=== PATIENT | female | born 1985 | race Caucasian/White ===

== ENCOUNTER 2022-03-16 12:37 | Emergency (ER) | payer OTHER, SELFPAY ==
[2022-03-16 13:06] VITALS: BP 114/69; PULSE 90; RESP 14; TEMP 36.4; O2SAT 100; BMI 21.4
[2022-03-16 15:42] VITALS: BP 113/72; PULSE 71; RESP 15; TEMP 36.9; O2SAT 100
[2022-03-16 16:58] LABS: MANUAL DIFF FLAG NO
[2022-03-16 17:09] LABS: Basophils Percent Auto 0.5 % (0-2); Eosinophils Absolute Auto 0.2 X10*3/uL (0.0-0.4); Eosinophils Percent Auto 3.2 % (0-4); Hematocrit 40.7 % (37.0-47.0); Hemoglobin 13.6 g/dl (12.0-16.0); Imm Gran Abs Auto 0.02 X10*3/uL (0.00-0.03); Imm Gran Pct Auto 0.3 % (0.0-0.4); Lymphocytes Absolute Auto 2.2 X10*3/uL (1.2-4.9); Mean Corpuscular HGB Conc 33.4 g/dl (31.0-35.0); Mean Corpuscular Hemoglobin 28.7 pg (27.0-33.0); Mean Corpuscular Volume 85.9 fL (80.0-98.0); Mean Platelet Volume 9.7 fL (9.4-12.3); Monocytes Absolute Auto 0.4 X10*3/uL (0.1-1.2); Monocytes Percent Auto 5.7 % (2-11); Neutrophils Absolute Auto 4.6 x10*3/uL (2.0-8.3); Neutrophils Percent Auto 61.3 % (45-73); Platelet Count 333 X10*3/uL (160-400); Red Blood Count 4.74 X10*6/uL (4.20-5.50); White Blood Count 7.5 X10*3/uL (4.8-10.8)
[2022-03-16 17:11] LABS: Lactic Acid 0.8 mmol/L (0.5-2.0)
[2022-03-16 17:25] LABS: Alanine Aminotransferase 7 U/L (0-31); Alkaline Phosphatase 54 U/L (39-117); Anion Gap 14 (12-20); Aspartate Amino Transferase 18 U/L (5-31); Bilirubin Direct 0.3 mg/dL (0.0-0.5); Bilirubin Total 0.7 mg/dL (0.0-1.0); Blood Urea Nitrogen 7 mg/dL (9-16); Calcium 10.1 mg/dL (8.4-10.2); Carbon Dioxide 24 mmol/L (22-29); Chloride 104 mmol/L (96-108); Creatinine Clr Calc Pharmacy 73.9; Estimated Glomerular Filt Rate > 60; Glucose Random 80 mg/dL (60-115); Potassium 4.4 mmol/L (3.3-5.1); Sodium 138 mmol/L (135-145); Total Protein 7.9 g/dL (6.5-8.0)
--- NOTE | 2022-03-16 17:44 | PC.NURSE ---
IV access infiltrated. Juliana ANDERSON attempting to obtain new patent IV access at this time. Medications to be administered once new IV is established. Provider (Salima Claudio) aware.
--- NOTE | 2022-03-16 18:02 | ED.GENADULT ---
HPI - General Adult General Chief complaint: Skin/Abscess/Foreign Body Stated complaint: acute lymphangitis Time Seen by Provider: 03/16/22 15:46 Source: patient Mode of arrival: ambulatory History of Present Illness HPI narrative: 36-year-old female with no significant past medical history presenting to the ED complaining of poison gely noted to left forearm after gardening 4 days ago, with mild swelling and erythema around area 2 days ago, and progression to red streaking up the arm since last night. Denies trauma, fever, chills, decreased ROM, numbness/tingling Onset (ago): day(s) Location: upper extremity Related Data Previous Rx's Medication Instructions Recorded cephalexin 500 mg capsule 500 mg PO QID 7 days #28 caps 03/16/22 doxycycline hyclate 100 mg tablet 100 mg PO BID 7 days #14 tabs 03/16/22 prednisone 10 mg tablet 10 mg PO DAILY #20 tabs 03/16/22 Allergies Allergy/AdvReac Type Severity Reaction Status Date / Time No Known Allergies Allergy Verified 03/16/22 16:05 Review of Systems Review of Systems: Constitutional: No Fever, No Chills ENT/Mouth: No Ear Pain, No Nasal Congestion, No sore throat, No Rhinorrhea, No Swallowing Difficulty Cardiovascular: No Chest Pain, No SOB Respiratory: No Cough, No Sputum Gastrointestinal: No Nausea, No Vomiting, No Diarrhea, No Constipation, No Abdominal pain Genitourinary: No Dysuria, No Urgency, No Flank Pain Musculoskeletal: No joint pain, No Myalgias, No Joint Swelling Skin: + Skin Lesions, + rash Neuro: No Weakness, No Numbness, No Paresthesias Yes all other systems are reviewed and are negative [facility] Past Medical History Attestation statement: The following information was validated with the patient. Social History Social History Advance Directives: No Advance Directives Information Provided: No Physical Exam ED Vital Signs: Vital Signs - 24 hr 03/16/22 13:06 03/16/22 15:42 Temperature 97.6 F 98.4 F Pulse Rate 90 71 Respiratory Rate 14 15 Blood Pressure 114/69 113/72 Pulse Oximetry 100 100 Oxygen Delivery Method Room Air Room Air BMI result Body Mass Index 21.4 Const General: cooperative, healthy appearing and no acute distress Orientation/consciousness: patient oriented x3 Limitations: no limitations HENMT Head: Yes normal to inspection and Yes atraumatic Ears: hearing grossly normal bilaterally General nose exam: Normal external nose present Face and sinus: Yes normal facial exam Eyes General: appearance normal, both eyes and all related structures EOM: EOMs intact bilaterally Neck Neck: Yes normal visual inspection and Yes no meningeal signs Resp Effort & Inspection: normal respiratory effort and no respiratory distress Cardio Rate: regular rate Heart sounds: S1 normal heart sound present and S2 normal heart sound present Peripheral pulses: radial pulses present Skin Other: Please refer to images above, poison gely noted to left forearm with visible vesicles and surrounding erythema/swelling. Mildly tender. Lymphangitis noted up to proximal humerus. Full range of motion intact. No drainage/fluctuance or induration. Neurovascular intact distally. Neuro General: patient oriented x3, tone normal and no meningeal signs Gait exam (Neuro): Normal gait present Extrem General: Yes normal to inspection Course Course Course Narrative: -no leukocytosis, labs otherwise unremarkable. Lactic acid negative. > patient given dose of IV Rocephin in the ED and p.o. doxycycline. Will also discharge with short course of prednisone taper Medical Decision Making MDM Narrative Medical decision making narrative: 36-year-old female with no significant past medical history presenting to the ED complaining of poison gely noted to left forearm after gardening 4 days ago, with extending swelling and erythema. On exam vital signs stable, NAD, nontoxic appearing, physical exam as above. Please refer to images. Concern for cellulitis/lymphangitis. No evidence of abscess at this time. Low of concern for sepsis Plan: Labs, lactic/blood cultures, NV home with antibiotics Medical Records Medical records reviewed: Yes I reviewed the patient's medical records. Lab Data Lab results reviewed: Yes I reviewed the patient's lab results. Result diagrams: 03/16/22 16:40 03/16/22 16:40 Labs: Lab Results 03/16/22 03/16/22 03/16/22 Range/Units 16:40 16:40 16:41 WBC 7.5 (4.8-10.8) X10*3/uL RBC 4.74 (4.20-5.50) X10*6/uL Hgb 13.6 (12.0-16.0) g/dl Hct 40.7 (37.0-47.0) % MCV 85.9 (80.0-98.0) fL MCH 28.7 (27.0-33.0) pg MCHC 33.4 (31.0-35.0) g/dl RDW 12.0 (11.0-16.0) % Plt Count 333 (160-400) X10*3/uL MPV 9.7 (9.4-12.3) fL Immature Gran % (Auto) 0.3 (0.0-0.4) % Neut % (Auto) 61.3 (45-73) % Lymph % (Auto) 29.0 (20-40) % [place] % (Auto) 5.7 (2-11) % Eos % (Auto) 3.2 (0-4) % Baso % (Auto) 0.5 (0-2) % Lymph # (Auto) 2.2 (1.2-4.9) X10*3/uL [place] # (Auto) 0.4 (0.1-1.2) X10*3/uL Eos # (Auto) 0.2 (0.0-0.4) X10*3/uL Baso # (Auto) 0.0 (0.0-0.2) X10*3/uL Abs Immat Gran (auto) 0.02 (0.00-0.03) X10*3/uL Absolute Neuts (auto) 4.6 (2.0-8.3) x10*3/uL Absolute Nucleated RBC 0.000 (0.0-0.012) X10*3/uL Nucleated RBC % (auto) 0.0 (0.0-0.2) /100WBC Sodium 138 (135-145) mmol/L Potassium 4.4 (3.3-5.1) mmol/L Chloride 104 (96-108) mmol/L Carbon Dioxide 24 (22-29) mmol/L Anion Gap 14 (12-20) BUN 7 L (9-16) mg/dL Creatinine 0.77 (0.5-1.4) mg/dL Estim Creat Clear Calc 73.9 Estimated GFR > 60 Random Glucose 80 (60-115) mg/dL Lactic Acid 0.8 (0.5-2.0) mmol/L Calcium 10.1 (8.4-10.2) mg/dL Total Bilirubin 0.7 (0.0-1.0) mg/dL Direct Bilirubin 0.3 (0.0-0.5) mg/dL AST 18 (5-31) U/L ALT 7 (0-31) U/L Alkaline Phosphatase 54 (39-117) U/L Total Protein 7.9 (6.5-8.0) g/dL Albumin 5.0 (3.5-5.0) g/dL Discharge Plan Discharge Clinical Impression: Poison gely, Cellulitis, Lymphangitis Patient Disposition: Home, Self-Care Instructions: Lymphangitis (ED), Poison Gely (ED), Cellulitis (ED) Additional Instructions: Your blood work was reassuring today in the emergency department. Your arm is infected Doxycycline and Keflex are antibiotics based take as prescribed. In addition start taking prednisone which helped treat your poison gely If redness is spreading, you develop fever or area becomes more swollen please return to the emergency department Prescriptions: New prednisone 10 mg tablet 10 mg PO DAILY Qty: 20 0RF Taper: Prednisone 40 mg daily for 3 Days and 0 Hour 30 mg daily for 3 Days and 0 Hour 20 mg daily for 3 Days and 0 Hour 10 mg daily for 3 Days and 0 Hour Rx Instructions: prednisone 10 mg: take 4 tablets (40 mg) for 2 days; 3 tablets (30 mg) for 2 days; 2 (20mg) tablets for 2 days and then 1 (10mg) tablet for 2 days cephalexin 500 mg capsule 500 mg PO QID 7 Days Qty: 28 0RF doxycycline hyclate 100 mg tablet 100 mg PO BID 7 Days Qty: 14 0RF Referrals: Physician,None [Primary Care Provider] - 3 days
[2022-03-16] MEDS: cefTRIAXone sodium 1 GM in 0.9 % Sodium Chloride 50 ML IV (18:03)
== END 2022-03-16 18:53 | disposition home or self-care (01) ==
PROVIDERS: Physician Assistant; Emergency Provider Emergency Medicine
DX: L23.7 Allergic contact dermatitis due to plants, except food (principal); L03.114 Cellulitis of left upper limb
CPT/HCPCS: 36415; 80048; 80076; 83605; 85025; 87040; 96365; 99283; 99284; J0696

== ENCOUNTER 2024-06-14 14:53 | Emergency (ER) | payer OTHER, SELFPAY ==
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
[2024-06-14 15:02] VITALS: BP 108/72; BP 110/65; PULSE 102; PULSE 92; RESP 18; TEMP 36.9; O2SAT 99; BMI 20.8
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
[2024-06-14 16:17] LABS: HCG Quantitative < 2 mIU/mL
[2024-06-14 18:50] LABS: Blood Urea Nitrogen 12 mg/dL (9-16); Creatinine Clr Calc Pharmacy 72.4; Estimated Glomerular Filt Rate > 60
[2024-06-14] MEDS: iohexoL 350 MG/ML 100 ML INFUS..BTL IV (19:34)
[2024-06-14 19:54] VITALS: BP 95/59; PULSE 65; RESP 18; TEMP 36.6; O2SAT 100
[2024-06-14 20:40] VITALS: BP 95/59; PULSE 65; RESP 18; TEMP 36.6; O2SAT 100
== END 2024-06-14 20:40 | disposition home or self-care (01) ==
PROVIDERS: Registered Nurse Emergency; Emergency Provider Emergency Medicine Emergency Medical Services
DX: S16.1XXA Strain of muscle, fascia and tendon at neck level, initial encounter (principal); V43.52XA Car driver injured in collision with other type car in traffic accident, initial encounter; Y93.9 Activity, unspecified; Y92.410 Unspecified street and highway as the place of occurrence of the external cause; Y99.9 Unspecified external cause status; R51.9 Headache, unspecified; M54.2 Cervicalgia; R10.30 Lower abdominal pain, unspecified
CPT/HCPCS: 36415; 70450; 72125; 74177; 82565; 84520; 84702; 99282; 99284; Q9967